=== PATIENT | female | born 1945 | race Caucasian/White ===

== ENCOUNTER 2017-08-07 11:46 | Emergency (ER) | payer MEDICARE ==
[2017-08-07 12:43] LABS: #Eosinphils 0.4 thou/uL (0.0-0.7); #Lymphocytes 1.8 thou/uL (1.20-3.40); #Monocytes 0.5 thou/uL (0.11-0.59); #Neutrophils 4.2 thou/uL (1.40-6.50); %Basophils 0.7 % (0.0-1.0); %Monocytes 7.5 % (0.0-10.0); Hematocrit 43.2 % (36.0-47.0); Mean Platelet Volume 7.8 fL (7.4-10.4); Red Blood Cell (RBC) Count 4.63 mill/uL (4.20-5.40); White Blood Cell (WBC) Count 7.1 thou/uL (4.8-10.8)
[2017-08-07 13:06] LABS: ALT (SGPT) 21 U/L (8-55); AST (SGOT) 27 U/L (5-34); Alkaline Phosphatase 67 U/L (40-150); Anion Gap 13 mmol/L (10-20); BUN (Urea Nitrogen) 14 mg/dL (9.8-20.1); Bilirubin, Total 0.5 mg/dL (0.2-1.2); CK (CPK) 156 U/L (29-168); Calc. Creatinine Clearance 0 mL/min (70-130); Calcium 9.5 mg/dL (7.8-10.44); Carbon Dioxide 28 mmol/L (23-31); Chloride 99 mmol/L (98-107); Estimated GFR-MDRD 66; Globulin 3.7 g/dL (2.4-3.5); Lipase 340 U/L (8-78); Protein, Total 7.6 g/dL (6.0-8.3)
[2017-08-07 13:10] LABS: Troponin I 0.017 ng/mL (< 0.028)
--- NOTE | 2017-08-07 14:19 | RAD ---
CHEST 1 VIEW: Date: 08/07/17 HISTORY: Dyspnea. Chest pain. COMPARISON: None. FINDINGS: Heart size is enlarged. There is a round density of the right paratracheal soft tissues. No pneumothorax. No large effusion. There are some postoperative changes of the mediastinum. IMPRESSION: Round right paratracheal density. This may reflect an ectatic vessel versus a mass. Follow-up CT of chest with contrast may be beneficial in this patient. CODE: T CODE: LUNG NODULE POS: OFF
== END 2017-08-07 15:12 | disposition home or self-care (01) ==
LOC: ERS 11:46
DX: K85.90 Acute pancreatitis without necrosis or infection, unspecified (principal); R05 Cough; E11.9 Type 2 diabetes mellitus without complications; F17.210 Nicotine dependence, cigarettes, uncomplicated; Z79.82 Long term (current) use of aspirin; Z79.84 Long term (current) use of oral hypoglycemic drugs
CPT/HCPCS: 36415; 71010; 80053; 82553; 83690; 83880; 84484; 85025; 93005

== ENCOUNTER 2017-09-28 09:52 | Emergency (ER) | payer MEDICARE ==
[~2017-09-28 09:52] MED LIST: ISOVUE-370 76%-LOCM 1 ML ONE
[2017-09-28 10:46] LABS: #Eosinphils 0.3 thou/uL (0.0-0.7); #Lymphocytes 1.1 thou/uL (1.20-3.40); #Monocytes 0.4 thou/uL (0.11-0.59); #Neutrophils 5.6 thou/uL (1.40-6.50); %Basophils 0.4 % (0.0-1.0); %Eosinophils 3.7 % (0.0-10.0); %Lymphocytes 15.1 % (21.0-51.0); %Monocytes 5.8 % (0.0-10.0); Hematocrit 45.4 % (42.0-52.0); Mean Platelet Volume 7.7 fL (7.4-10.4); Red Blood Cell (RBC) Count 5.04 mill/uL (4.70-6.10); White Blood Cell (WBC) Count 7.4 thou/uL (4.8-10.8)
[2017-09-28] MEDS ORDERED: Lidocaine Viscous Sol 2% 15 ml UD Cup ONE (11:03)
[2017-09-28] MEDS ORDERED: Milk Of Magnesia 30 ML UDCUP ONE (11:03)
[2017-09-28 11:07] LABS: ALT (SGPT) 13 U/L (8-55); AST (SGOT) 21 U/L (5-34); Alkaline Phosphatase 86 U/L (40-150); Anion Gap 13 mmol/L (10-20); BUN (Urea Nitrogen) 13 mg/dL (8.4-25.7); Bilirubin, Total 0.6 mg/dL (0.2-1.2); CK (CPK) 61 U/L (30-200); Calc. Creatinine Clearance 0 mL/min (70-130); Calcium 10.2 mg/dL (7.8-10.44); Carbon Dioxide 29 mmol/L (23-31); Chloride 94 mmol/L (98-107); Estimated GFR-MDRD 73; Globulin 3.8 g/dL (2.4-3.5); Lipase 254 U/L (8-78); Protein, Total 7.8 g/dL (5.8-8.1)
[2017-09-28 11:11] LABS: Troponin I 0.017 ng/mL (< 0.028)
[2017-09-28] MEDS ORDERED: Morphine 4 MG/ML VIAL ONE (12:46)
--- NOTE | 2017-09-28 13:05 | CT ---
CT CERVICAL SPINE: Multiple axial tomograms are obtained through the cervical spine with multiplanar reconstruction. HISTORY: Neck pain. Left arm weakness. FINDINGS: There is a large lytic lesion involving the C2 vertebra. This lesion extends into the base of the od ontoid and involves the C2 body centrally and lateral mass on the right. This measures approximately 2.4 cm in craniocaudal dimension x 2.0 cm width in the coronal plane. There may be an associated so ft tissue component and this could involve the vertebral artery at the C2 level on the right. The so ft tissue component may extend into the epidural space on the right. The other cervical vertebrae maintain height and alignment. There are mottled lucencies seen within the other cervical vertebrae which could represent changes of osteoporosis. However, there is a 5 m m lucency in the inferior aspect of the C3 vertebrae which is suspicious for a metastatic lesion. Th ere are other tiny lucencies in the other vertebrae which could represent osteoporosis or metastatic foci. There is a larger lytic lesion involving the T1 vertebra to the left of midline. This involves the p edicle and lamina of T1 on the left. There is also extension into the left transverse process. A fo ramon lucency in the T2 vertebrae to the left of midline posteriorly is also suspicious for a lytic les ion. Review of soft tissues reveals a large 5.5 cm mass in the anterior right lung apex which may represen t the site of primary neoplasm. IMPRESSION: 1. There are multiple lytic lesions involving the cervical spine which suggests metastatic disease. The large lytic lesion involving the C2 vertebra may represent some epidural extension and could inv olve the right vertebral artery at this level. There are other cervical spine lesions as described a anand with another larger lesion involving the T1 vertebra to the left of midline and a T2 lesion is a lso seen as described above. 2. A large mass in the anterior right lung apex measuring 5.[address] chest with contrast to further evaluate the lung lesion. MRI of the spine with and wi thout contrast would be of benefit to assess the metastatic disease. POS: [facility]
--- NOTE | 2017-09-28 13:40 | CT ---
CT HEAD WITHOUT CONTRAST: Multiple axial tomograms were obtained through the head without IV enhancement. HISTORY: Neck pain. Arm weakness. FINDINGS: Ventricles have normal size and position. There is no evidence of intracranial hemorrhage, mass, or infarct identified. Visualized sinuses and mastoids are well aerated. IMPRESSION: No acute abnormality identified. POS: [facility]
--- NOTE | 2017-09-28 13:58 | CT ---
CT CHEST WITH IV CONTRAST CT ABDOMEN AND PELVIS WITH IV CONTRAST CT THORACIC SPINE NONCONTRAST CT LUMBAR SPINE NONCONTRAST: HISTORY: Chest and abdomen pain. Back pain. FINDINGS: Centered at the medial aspect of the right lung apex is a large lobular heterogeneous low-density mas s measuring up to 5.9 x 5.7 cm greatest diameters. It abuts the right paratracheal mediastinum. A 1 .3 cm pleural-based nodule is present at the medial aspect of the right upper lobe at the level of th e aortic arch. Bulky lobular mass at the subcarinal level of the mediastinum measures up to 7.6 x 5. 8 cm greatest diameters. A 3.1 cm oval mass, likely enlarged lymph node, is present at the right low er paraesophageal level. A 2.2 cm ill-defined low-density mass is present within the tail of the spleen. A 4.1 cm mass is low -density, centered at the uncinate process of the pancreas. A 0.08 cm retroperitoneal lymph node lie s adjacent to the left renal vein. A 0.6 cm nodule is present at the lateral aspect of the right upp er lobe of the lung. An ill-defined destructive lesion involves the lateral aspect of the right 6th rib. There are degenerative changes throughout the thoracolumbar spine. No compression fracture or other acute osseous abnormalities are demonstrated. IMPRESSION: Widespread metastatic disease as detailed above. Primary is favored to be within the pancreas, with metastatic involvement of the right lung, mediastinum, right ribs, and thoracoabdominal adenopathy. POS: [facility]
== END 2017-09-28 14:14 | disposition home or self-care (01) ==
LOC: EDSEX 09:52 → ERS 09:52
DX: C78.01 Secondary malignant neoplasm of right lung (principal); C78.1 Secondary malignant neoplasm of mediastinum; C79.51 Secondary malignant neoplasm of bone; C79.89 Secondary malignant neoplasm of other specified sites; C25.9 Malignant neoplasm of pancreas, unspecified; E11.9 Type 2 diabetes mellitus without complications; F17.210 Nicotine dependence, cigarettes, uncomplicated; Z86.73 Personal history of transient ischemic attack (TIA), and cerebral infarction without residual deficits; Z79.82 Long term (current) use of aspirin; Z79.84 Long term (current) use of oral hypoglycemic drugs
CPT/HCPCS: 70450; 71260; 72125; 74177; 80053; 82550; 82553; 83690; 84484; 85025; 93005; 96361; 96374; J2270

== ENCOUNTER 2017-10-06 08:13 | Day surgery (SDC) | payer MEDICARE ==
[2017-10-05 15:03] VITALS: BMI 25.9
[2017-10-06 08:32] LABS: PTT 29.4 SEC (22.9-36.1); Prothrombin Time 13.5 SEC (12.0-14.7)
[2017-10-06 09:32] VITALS: TEMP 97.8
[2017-10-06] MEDS ORDERED: Sodium Bicarbonate 2.4 MEQ/5 ML ONE (09:53)
[2017-10-06] MEDS ORDERED: Midazolam HCl 2 mg/2 ml Vial ONE (09:54)
[2017-10-06] MEDS ORDERED: Fentanyl 100 MCG/2 ML VIAL ONE (09:54)
--- NOTE | 2017-10-06 13:02 | CT ---
NONCONTRAST ENHANCED CT GUIDED RIGHT SIXTH RIB BIOPSY: 10/06/2017 HISTORY: Extensive mediastinal and retroperitoneal masses with a pathologic right sixth rib fracture. TECHNIQUE: Informed consent was obtained from the patient. The patient was placed in the left dependent positio n. The right sixth rib was localized using CT guidance. The overlying skin was prepped and draped i n the usual sterile manner. A 1% Lidocaine solution was used to anesthetize the overlying soft tissu es. A small dermatotomy was made. An outer 17 gauge needle was placed using CT guidance, adjacent t o the area of pathologic fracture and soft tissue swelling. Three core biopsies were obtained. The specimen was sent for pathology. Initial touch prep suggested the presence of pathologic tissue. Post procedure, no evidence of post biopsy hemothorax or pneumothorax seen. Also noted is some heterogeneity seen in the hepatic parenchyma. Findings suggest extensive liver me tastatic disease as well. IMPRESSION: Successful CT guided right sixth pathologic rib fracture biopsy. POS: [facility]
[2017-10-06] MEDS ORDERED: FLU VACC TS2017-18 (>65YR) 0.5 ML SYRINGE IM ONE (21:00)
== END 2017-10-06 12:00 | disposition home or self-care (01) ==
LOC: CT 08:13
PROVIDERS: ATTEND Internal Medicine Medical Oncology
PROC: 0B9K3ZX Drainage of Right Lung, Percutaneous Approach, Diagnostic (ICD-10-PCS; principal; 2017-10-06)
DX: R19.09 Other intra-abdominal and pelvic swelling, mass and lump (principal); J98.59 Other diseases of mediastinum, not elsewhere classified; M84.48XA Pathological fracture, other site, initial encounter for fracture
CPT/HCPCS: 32405; 36415; 77012; 85610; 85730; 88173; 88305; 88313; 88333; 88334; 88341; 88342; J2250; J3010

== ENCOUNTER 2017-10-16 08:17 | Outpatient (CLI) | payer MEDICARE ==
--- NOTE | 2017-10-16 13:15 | NM ---
WHOLE BODY BONE SCAN: INDICATION: History of lung cancer. RADIOPHARMACEUTICAL: 32 mCi of Technetium 99m MDP IV. COMPARISON: Prior CT of the chest, abdomen, and pelvis dated 09/28/17. FINDINGS: Corresponding to the pathologic fracture involving the right lateral 6th rib is an area of focal radi otracer accumulation. There is a focal region of accumulation seen near the region of the upper thor acic spine suspicious for an additional focus of osseous metastatic disease. This is approximately a t the T1 vertebral level. No corresponding radiotracer accumulation is seen involving the lucency wi thin the L3 vertebral body seen on the comparison examination which may be related to prominent osteo lysis from an osteolytic lesion. There are degenerative changes seen scattered throughout the thorac olumbar spine. There is some activity involving the region of the left glenoid suspicious for an add itional focus of metastatic disease. There is degenerative activity within the feet, knees, wrists, and elbows. IMPRESSION: 1. Findings suspicious for diffuse osseous metastatic disease within the left glenoid, T1 vertebra, and right 6th rib. There is a lucency seen within the central aspect of the L3 vertebra on the robinson rison CT dated 09/28/17 that demonstrates no definite area of radiotracer uptake may reflect a highly aggressive lytic lesion without any bone repair at this current time. 2. Degenerative activity as above. POS: [facility]
== END 2017-10-16 08:18 | disposition home or self-care (01) ==
LOC: NM 08:17
PROVIDERS: ATTEND Internal Medicine Medical Oncology
DX: C34.11 Malignant neoplasm of upper lobe, right bronchus or lung (principal); C79.51 Secondary malignant neoplasm of bone
CPT/HCPCS: 78306; A9503

== ENCOUNTER 2017-10-29 16:03 | Inpatient (IN) | payer MEDICARE ==
[2017-10-29] MEDS ORDERED: Acetaminophen 500 MG TAB ONE (16:44)
[2017-10-29] MEDS ORDERED: Piperacillin/Tazobactam 4.5 GM in Sodium Chloride 0.9% 100 ML IVPB ONE (16:45)
[2017-10-29 17:06] LABS: Hemoglobin 13.1 g/dL (14.0-18.0); Mean Corpuscular HGB CONC 34.2 g/dL (32.0-36.0); Mean Corpuscular Hemoglobin 29.9 pg (27.0-31.0); Mean Corpuscular Volume 87.5 fl (80.0-94.0); Mean Platelet Volume 7.2 fL (7.4-10.4); Platelet Count 108 thou/uL (130-400); RBC Distribution Width 11.8 % (11.5-14.5); Red Blood Cell (RBC) Count 4.37 mill/uL (4.70-6.10); White Blood Cell (WBC) Count 0.5 thou/uL (4.8-10.8)
[2017-10-29 17:16] LABS: ALT (SGPT) 37 U/L (8-55); AST (SGOT) 47 U/L (5-34); Albumin 3.8 g/dL (3.4-4.8); Alkaline Phosphatase 79 U/L (40-150); Anion Gap 14 mmol/L (10-20); BUN (Urea Nitrogen) 18 mg/dL (8.4-25.7); Bilirubin, Total 2.1 mg/dL (0.2-1.2); CK (CPK) 74 U/L (30-200); Calc. Creatinine Clearance 0 mL/min (70-130); Calcium 9.5 mg/dL (7.8-10.44); Carbon Dioxide 27 mmol/L (23-31); Chloride 85 mmol/L (98-107); Estimated GFR-MDRD 76; Globulin 3.5 g/dL (2.4-3.5); Glucose 234 mg/dL (80-115); Lipase Less than 4 U/L (8-78); Magnesium 1.5 mg/dL (1.6-2.6); Potassium 5.5 mmol/L (3.5-5.1); Protein, Total 7.3 g/dL (5.8-8.1); Sodium 120 mmol/L (136-145)
[2017-10-29 17:17] LABS: CKMB 0.4 ng/mL (0-6.6); Troponin I 0.037 ng/mL (< 0.028)
[2017-10-29 17:18] LABS: PLT Morphology Comment Appears Decreased; RBC Morphology Normal
[2017-10-29 17:19] LABS: INR-International Normal Ratio 1.3; Prothrombin Time 16.6 SEC (12.0-14.7)
[2017-10-29 17:20] LABS: PTT 37.5 SEC (22.9-36.1)
--- NOTE | 2017-10-29 17:48 | RAD ---
CHEST TWO VIEWS: 10/29/17 HISTORY: Chest pain. Hypotension. COMPARISON: 09/28/17. FINDINGS: The cardiac silhouette and pulmonary vasculature are unremarkable. Mediastinum is midline with postop erative changes evident. Large right suprahilar mass is again demonstrated, correlating with the lesi on on recent CT. Splaying of the sigifredo is consistent with subcarinal adenopathy. The lungs are hyper inflated. No confluent air space consolidation, pleural fluid, or pneumothorax are apparent. The card iac monitor leads overlie the chest. IMPRESSION: Mediastinal and right suprahilar masses appear stable compared to the recent CT exam. No acute proces s is demonstrated compared to the prior CT. POS: [facility]
[2017-10-29 19:37] LABS: Bilirubin Moderate (Negative); Blood, Urine Negative (Negative); Clarity CLOUDY (Clear); Glucose, Urine (Dipstick) 250 mg/dL (Negative); Leukocyte Trace (Negative); Nitrite Negative (Negative); Protein, Urine (Dipstick) 30 mg/dL (Neg-Trace); Specific Gravity, Urine 1.026 (1.002-1.036)
[2017-10-29 19:39] LABS: Bacteria/HPF None Seen HPF (None Seen); Pathc Cast-AUWi Flag 1.62 (0-2.49); RBC/HPF 0-3 HPF (0-3); Squamous Epithelial 0-3 HPF (0-3); WBC/HPF 0-3 HPF (0-3)
[2017-10-29 19:40] LABS: Yeast-AUWi Flag 25.3 (0-25.0)
[2017-10-29 19:49] LABS: Crystals/HPF None Seen HPF (Negative); Hyaline Casts/LPF 0-3 HYALINE CAST LPF (0-3 Hyaline); Other Casts/LPF None Seen LPF (0-3 Hyaline); Renal Epithelial 0-3 HPF (0-3); Transitional Epithelial 0-3 HPF (0-3); Yeast-All Forms None Seen HPF (None Seen)
[2017-10-29] MEDS ORDERED: Ondansetron HCl/PF 4 MG/2 ML Vial IVP PRN (21:39)
[2017-10-29] MEDS ORDERED: Acetaminophen 325 MG TAB PO PRN (21:39)
[2017-10-29] MEDS ORDERED: Ondansetron ODT 4 MG TAB SL PRN (21:39)
[2017-10-29 23:28] VITALS: BMI 22.5
[2017-10-30] MEDS ORDERED: Dextrose 50% Abboject 50 ML SYRINGE SLOW IVP PRN (01:21)
[2017-10-30] MEDS ORDERED: Ondansetron ODT 4 MG TAB PO PRN (01:21)
[2017-10-30] MEDS ORDERED: HumaLOG 300 UNITS/3 ML VIAL SC PRN (01:21)
[2017-10-30] MEDS ORDERED: Acetaminophen 500 MG TAB PO PRN (01:21)
[2017-10-30] MEDS ORDERED: Ondansetron HCl/PF 4 MG/2 ML Vial IVP PRN (01:21)
[2017-10-30] MEDS ORDERED: Sodium Chloride 0.9% 1,000 ML IV SCH (01:21)
[2017-10-30] MEDS ORDERED: cloNIDine 0.1 MG TAB PO PRN (01:21)
[2017-10-30] MEDS ORDERED: Dextrose 5% in Water 1,000 ML IV PRN (01:21)
[2017-10-30] MEDS ORDERED: hydrALAZINE 20 MG/ML VIAL SLOW IVP PRN (01:21)
[2017-10-30] MEDS: Vancomycin HCl 1 GM in Premix Bag 1 BAG IVPB SCH ×2 (04:23→16:05)
--- NOTE | 2017-10-30 04:48 | HP ---
DATE OF ADMISSION: 10/30/2017 PRIMARY CARE PHYSICIAN: Dr. Kelly at the [facility]. CHIEF COMPLAINT: Fever and malaise. HISTORY OF PRESENT ILLNESS: This is a 72-year-old male from [facility], who resides in [place], [place], acc ompanied by his daughter who translates as the patient does not speak Irish. The patient apparentl y presented for general malaise after a followup visit at the Cancer Clinic noted the patient to be h ypotensive and with fever up to 103 degrees Fahrenheit. The patient's history is significant for sma ll cell lung carcinoma, initiated on chemotherapy within the last week and a half. The patient's las t chemotherapy session was approximately one week prior to this evaluation. The family notes that th e patient has had overall poor oral intake and decreased appetite over the last several weeks. The p atient does drink juices and eats small amounts of vegetables and fruits. No significant history of increased shortness of breath or chest pain; however, the patient does state he feels weakened with a ny light movement or ambulation. The patient denied taking any home remedies for symptom relief. Toby lau reports no other family members with similar symptoms, fever or exposure. In the emergency room , the patient underwent general evaluation including chest imaging showing no acute infiltrate. The patient is with a right suprahilar mass, diagnosis of small cell carcinoma. The patient received int ravenous normal saline x3 L as well as Zosyn 4.5 g x1 dose and vancomycin 1 g. The patient also rece ived 1000 mg of Tylenol and was referred to the Oncology Unit for admission. PAST MEDICAL HISTORY: 1. Coronary artery disease. 2. Tobacco use. 3. Small cell lung carcinoma, status post biopsy with current chemotherapy. 4. Diabetes mellitus type 2. PAST SURGICAL HISTORY: 1. Status post coronary artery bypass grafting. 2. Status post lung biopsy. CURRENT MEDICATIONS: 1. Enteric coated aspirin 81 mg 1 tablet p.o. daily. 2. Glimepiride 1 mg p.o. daily. 3. Rapaflo 8 mg p.o. daily. 4. Tramadol 50 mg 1 tablet p.o. q.6 hours p.r.n. 5. Viscous Lidocaine p.r.n. 6. Zofran 4 mg p.o. q.6 hours p.r.n. nausea and vomiting. ALLERGIES: No known drug allergies. FAMILY HISTORY: Positive for diabetes mellitus. SOCIAL HISTORY: The patient is , accompanied by his and daughter in the hospital. No al cohol or illicit drug use. Occasional tobacco use. REVIEW OF SYSTEMS: The following complete review of systems was negative, unless otherwise mentioned in the HPI or below: Constitutional: Weight loss or gain, ability to conduct usual activities. Skin: Rash, itching. Eyes: Double vision, pain. ENT/Mouth: Nose bleeding, neck stiffness, pain, tenderness. Cardiovascular: Palpitations, dyspnea on exertion, orthopnea. Respiratory: Shortness of breath, wheezing, cough, hemoptysis, fever or night sweats. Gastrointestinal: Poor appetite, abdominal pain, heartburn, nausea, vomiting, constipation, or diarr hea. Genitourinary: Urgency, frequency, dysuria, nocturia. Musculoskeletal: Pain, swelling. Neurologic/Psychiatric: Anxiety, depression. Allergy/Immunologic: Skin rash, bleeding tendency. Otherwise negative except as stated per HPI. PHYSICAL EXAMINATION: VITAL SIGNS: Currently, blood pressure 108/53, pulse 103, respiratory rate 16, temperature 97.8 degr ees Fahrenheit, T-max of 103 degrees Fahrenheit. O2 saturation 97% on room air. GENERAL APPEARANCE: This is a 72-year-old male, alert and responsive, in no acute distress. HEENT: Pupils are equal, round, and reactive to light and accommodation. Extraocular muscles are in tact. No scleral icterus, no conjunctival injection. Nares patent. OP is clear. NECK: Supple, no cervical adenopathy, no thyromegaly, no carotid bruits, no JVD appreciated. Cervic al spine is with full active and passive range of motion. No meningeal signs appreciated. CHEST: Diminished in the lung bases. CARDIOVASCULAR: S1, S2, without noted murmur. ABDOMEN: Rounded, soft, nontender, and nondistended. Bowel sounds are positive in all 4 quadrants. There is no hepatosplenomegaly, no abdominal bruits, no rebound or guarding noted. EXTREMITIES: Warm and dry with fair turgor. No clubbing, cyanosis or asymmetric edema appreciated. Pulses palpable distally at the dorsalis pedis, posterior tibial, and popliteal arteries bilaterally . Capillary refill is less than 2 seconds. NEUROLOGIC: Cranial nerves II-XII are grossly intact. No focal or lateralizing signs appreciated. PERTINENT LABORATORY AND X-RAY FINDINGS: Sodium 120, potassium 5.5, chloride 85, CO2 of 27, BUN 18, creatinine 0.98, glucose 234. Lactic acid level ranged between 2.0 to 2.3, calcium 9.5, magnesium 1. 5, total bilirubin 2.1, AST 47, ALT 37, alkaline phosphatase 79. BNP 395, albumin 3.8. Lipase is le ss than 4. CBC showed a white blood cell count 0.5, hemoglobin 13, hematocrit 38, and platelet count 108. PT 16.6, INR 1.3, PTT 37.5. Urinalysis dated 10/29/2017 showed positive for protein, glucose and trace ketones. Moderate bilirubin noted. Urine microscopy is negative. Influenza A and B antig en dated 10/29/2017 is negative. Group A streptococcal throat screen on 10/29/2017 is negative. Por table chest x-ray dated 10/29/2017 showed no acute cardiopulmonary process. Mediastinal and right cyr prahilar masses noted consistent with prior study. EKG dated 10/29/2017 by my interpretation shows s inus tachycardia with heart rate in the 120s. Attenuated R waves noted in the precordial leads. Nor mal axis. T-wave inversion in leads V5 and V6. T-wave inversion in leads II, III, and F. ASSESSMENT AND PLAN: 1. Neutropenic fever. The patient will be admitted to the medical oncology unit. We will continue vancomycin 1 g IV q.12 hours with additional cefepime 2 g IV q.12 hours. Blood and urine cultures ar e pending. Continue intravenous fluids with normal saline at 100 mL per hour. Await final blood and urine culture results. 2. Sepsis of unclear source. Continue sepsis protocol. See #1 above. 3. Hyponatremia. Suspect multifactorial given the patient's poor p.o. intake and recent chemotherap y. Continue intravenous normal saline and monitor serial sodium values. 4. Hyperkalemia. Continue intravenous fluids as stated previously. Repeat potassium level in the a .m. 5. Small cell lung carcinoma with current chemotherapy. We will continue symptomatic and supportive management. The patient is to resume outpatient chemotherapy when clinically stabilizing. 6. Neutropenia with thrombocytopenia. We will continue to monitor CBC trend. We will hold further chemotherapy until recovery of platelets and white blood cell counts. 7. Diabetes mellitus type 2. Insulin sliding scale for reflexive coverage. Accu-Cheks before meals and at bedtime. ADA diet. 8. Prophylaxis. Sequential compression devices while in bed. Pepcid 20 mg p.o. b.i.d. 9. Code status is FULL. Surrogate medical decision maker is the patient's daughter.
[2017-10-30 05:55] LABS: Hemoglobin 10.3 g/dL (14.0-18.0); Mean Corpuscular HGB CONC 33.7 g/dL (32.0-36.0); Mean Corpuscular Hemoglobin 29.8 pg (27.0-31.0); Mean Corpuscular Volume 88.4 fl (80.0-94.0); Mean Platelet Volume 6.7 fL (7.4-10.4); Platelet Count 64 thou/uL (130-400); RBC Distribution Width 11.8 % (11.5-14.5); Red Blood Cell (RBC) Count 3.45 mill/uL (4.70-6.10); White Blood Cell (WBC) Count 0.4 thou/uL (4.8-10.8)
[2017-10-30] MEDS ORDERED: Cefepime 2 GM in Sodium Chloride 0.9% 100 ML IVPB SCH (06:00)
[2017-10-30 06:10] LABS: ALT (SGPT) 24 U/L (8-55); AST (SGOT) 23 U/L (5-34); Albumin 3.1 g/dL (3.4-4.8); Alkaline Phosphatase 58 U/L (40-150); Anion Gap 10 mmol/L (10-20); BUN (Urea Nitrogen) 15 mg/dL (8.4-25.7); Bilirubin, Total 1.5 mg/dL (0.2-1.2); Calc. Creatinine Clearance 85 mL/min (70-130); Calcium 8.6 mg/dL (7.8-10.44); Carbon Dioxide 24 mmol/L (23-31); Chloride 92 mmol/L (98-107); Estimated GFR-MDRD Greater than 90; Globulin 2.8 g/dL (2.4-3.5); Glucose 180 mg/dL (80-115); Potassium 4.4 mmol/L (3.5-5.1); Protein, Total 5.9 g/dL (5.8-8.1); Sodium 122 mmol/L (136-145)
[2017-10-30] MEDS: Cefepime 2 GM, Syringe 2.5 ML in Sterile Water 10 ML SLOW IVP SCH ×3 (06:25→21:31)
[2017-10-30] MEDS: Cepastat Lozenges 1 LOZ PO PRN ×4 (06:25→21:31)
[2017-10-30] MEDS: Famotidine 20 MG TAB PO SCH ×2 (08:37→21:53)
[2017-10-30] MEDS ORDERED: Polyethylene Glycol 3350 17 GM Packet PO PRN (09:07)
[2017-10-30] MEDS ORDERED: Aluminum & Magnesium Hydroxide 60 ML, Lidocaine 2% Viscous Solution 30 ML, diphenhydrAM... SSW PRN ×3 (09:07)
[2017-10-30] MEDS ORDERED: traMADol HCl 50 MG TAB PO PRN (09:07)
[2017-10-30] MEDS: traMADol HCl 50 MG TAB PO PRN ×3 (11:11→21:28)
--- NOTE | 2017-10-30 13:33 | CON ---
DATE OF CONSULTATION: 10/30/2017 REASON FOR CONSULTATION: Neutropenic fever. HISTORY OF PRESENT ILLNESS: Mr. Velazquez is a 72-year-old [place] male who was diagnosed with small cell lung cancer with multiple metastases in 09/2017. He presented at diagnosis with a 5.9 x 5.7 cm mass in his right lung apex. There was also a 7.6 x 5.8 cm mass in the subcarinal mediastinum. He had l esions in his pancreas, spleen, bone, and pleural space. He underwent radiation which was completed last week. He then received cycle 1 of chemotherapy consisting of carboplatin and [employer] REIMBURSEMENT SPECIALIST-16. Yesterday, he presented to the clinic with general malaise and fever of 100.2. CBC revealed a white count of 6 00. He was thus admitted for neutropenic fever. He had influenza screen, which was negative. Blood cultures of all preliminary have been negative. He was started on empiric antibiotics and IV fluids . PAST MEDICAL HISTORY: 1. Newly diagnosed small cell lung cancer. 2. Type 2 diabetes mellitus. 3. Myocardial infarction. PAST SURGICAL HISTORY: Coronary artery bypass grafting. ALLERGIES: No known drug allergies. HOME MEDICATIONS: 1. Aspirin 81 mg daily. 2. Glimepiride 1 mg daily. 3. Magic mouthwash p.r.n. 4. Tramadol p.r.n. FAMILY HISTORY: Noncontributory. SOCIAL HISTORY: , lives with his spouse, 3-pack a day smoker for over 50 years. No alcohol o r illicit drug use. REVIEW OF SYSTEMS: Positive for fever, chills, weight loss, cough, chest pain, back pain, and weakne ss. PHYSICAL EXAMINATION: VITAL SIGNS: Temperature is 98.6, pulse is 125, respiratory rate is 18, BP is 142/69, 98% on room ai r. GENERAL: This is a thin male, in no acute distress. HEENT: Normocephalic, atraumatic. Pupils equal, round, and reactive to light. NECK: Supple. HEART: Regular rate and rhythm. He is tachycardic. LUNGS: Clear. ABDOMEN: Soft, nontender. There is no hepatosplenomegaly. EXTREMITIES: No clubbing, cyanosis or edema. SKIN: No rash. HEMATOLOGIC: No petechia or purpura. NEUROLOGIC: Nonfocal. PSYCHIATRIC: The patient is alert and appropriate. PERTINENT LABORATORY AND X-RAYS: Current WBC is 400, hemoglobin 10.3, hematocrit 30.5, platelet coun t 64,000. PT is 16.6, INR is 1.3, PTT is 37.5. Sodium is 122, potassium 4.4, chloride 92, CO2 is 24 , BUN is 15, creatinine 0.75. Lactic acid is 2, calcium 8.6, bilirubin is 1.5, AST is 23, ALT is 24, alkaline phosphatase is 58, troponin 0.037, BNP is 395, serum total protein 5.9, albumin 3.1, globul in 2.8. Urine was negative for bacteria. Chest x-ray showed no acute process. ASSESSMENT AND PLAN: 1. Extensive small cell lung cancer, status post cycle 1 of chemotherapy. 2. Neutropenic fever. 3. Dehydration. 4. Hyponatremia secondary to #1. DISCUSSION: The patient has been started on empiric antibiotics and IV fluids. He feels much better today. He remains severely neutropenic. No Neupogen will be given at this time as he had just comp leted radiation. We will provide supportive care with fluids and antibiotics. I will add his home m edications including Magic mouthwash and tramadol, provide supportive care.
--- NOTE | 2017-10-30 15:01 | PDOC.PN ---
- Subjective Encounter Start Date: 10/30/17 Encounter Start Time: 14:59 Mr. Velazquez was seen today in follow-up of Neutropenic fever. He admits to some sore throat and cough, otherwise ok. - Objective Resuscitation Status: Resuscitation Status FULL:Full Resuscitation MAR Reviewed: Yes Vital Signs & Weight: Vital Signs (12 hours) Temp Pulse Resp BP Pulse Ox 10/30/17 08:00 98.6 F 125 H 18 98 10/30/17 07:14 98.6 F 125 H 18 142/69 H 98 10/30/17 03:44 98.5 F 114 H 16 131/71 99 Weight Admit Weight 143 lb 15.36 oz Weight 143 lb 15.36 oz Result Diagrams: 10/30/17 05:23 10/30/17 05:23 Additional Labs: Accuchecks 10/30/17 10/30/17 11:17 05:27 POC Glucose 158 H 173 H Phys Exam - Physical Examination HEENT: PERRLA Respiratory: no wheezing + mild rhonchi bilaterally Cardiovascular: RRR, no significant murmur Gastrointestinal: soft, non-tender, positive bowel sounds Musculoskeletal: no edema Dx/Plan (1) Neutropenic fever Code(s): D70.9 - NEUTROPENIA, UNSPECIFIED; R50.81 - FEVER PRESENTING WITH CONDITIONS CLASSIFIED ELSEWHERE Status: Acute (2) Small cell lung cancer Code(s): C34.90 - MALIGNANT NEOPLASM OF UNSP PART OF UNSP BRONCHUS OR LUNG Status: Acute (3) Hyponatremia Code(s): E87.1 - HYPO-OSMOLALITY AND HYPONATREMIA Status: Acute - Plan * Neutropenic fever unknown source-- continue Cefepime and Vancomycin, cultures are negative to date. * Hyponatremia- I suspect due to volume depletion as well as SIADH ( given history of lung cancer) will check urine/serum osmols, and urine sodium- continue IV fluids, but may need to restrict free water * DM- blood glucose is stable * CAD- stable
[2017-10-30] MEDS: GRANIX 300 MCG/0.5 ML VIAL SC SCH (16:05)
[2017-10-30 16:33] LABS: Osmolality, Urine 672 mOsm/kg (300-900)
[2017-10-30 17:02] LABS: Sodium, Urine 50 mmol/L (Not Available)
[2017-10-30] MEDS: Sodium Chloride 0.9% 1,000 ML IV SCH (18:18)
[2017-10-30] MEDS: Docusate 100 MG CAP PO SCH (21:28)
[2017-10-30] MEDS: HumaLOG 300 UNITS/3 ML VIAL SC PRN (21:30)
[2017-10-31 04:56] LABS: Hemoglobin 9.2 g/dL (14.0-18.0); Mean Corpuscular HGB CONC 33.5 g/dL (32.0-36.0); Mean Corpuscular Volume 89.5 fl (80.0-94.0); Mean Platelet Volume 7.1 fL (7.4-10.4); Platelet Count 64 thou/uL (130-400); RBC Distribution Width 11.8 % (11.5-14.5); Red Blood Cell (RBC) Count 3.06 mill/uL (4.70-6.10); White Blood Cell (WBC) Count 0.4 thou/uL (4.8-10.8)
[2017-10-31 05:02] LABS: Vancomycin, Trough 10.4 ug/mL
[2017-10-31 05:04] LABS: Anion Gap 11 mmol/L (10-20); BUN (Urea Nitrogen) 18 mg/dL (8.4-25.7); Calc. Creatinine Clearance 96 mL/min (70-130); Calcium 8.4 mg/dL (7.8-10.44); Carbon Dioxide 24 mmol/L (23-31); Chloride 95 mmol/L (98-107); Estimated GFR-MDRD Greater than 90; Glucose 120 mg/dL (80-115); Potassium 3.8 mmol/L (3.5-5.1); Sodium 126 mmol/L (136-145)
[2017-10-31] MEDS ORDERED: Vancomycin HCl 1.5 GM in Sodium Chloride 0.9% 250 ML 300 ML IVPB SCH (05:30)
[2017-10-31] MEDS: Cefepime 2 GM, Syringe 2.5 ML in Sterile Water 10 ML SLOW IVP SCH ×3 (05:44→21:45)
[2017-10-31] MEDS: traMADol HCl 50 MG TAB PO PRN ×3 (05:44→21:15)
[2017-10-31] MEDS: Cepastat Lozenges 1 LOZ PO PRN ×2 (05:45→13:07)
[2017-10-31] MEDS: Vancomycin HCl 1 GM in Premix Bag 1 BAG IVPB SCH (06:06)
--- NOTE | 2017-10-31 07:31 | PDOC.PN ---
- Subjective Encounter Start Date: 10/31/17 Encounter Start Time: 07:28 Mr. Velazquez was seen today in follow-up of neutropenic fever. He does not have any complaints this morning. - Objective Resuscitation Status: Resuscitation Status FULL:Full Resuscitation MAR Reviewed: Yes Vital Signs & Weight: Vital Signs (12 hours) Temp Pulse Resp Pulse Ox 10/30/17 20:00 99.0 F 104 H 14 96 Weight Admit Weight 143 lb 15.36 oz Weight 143 lb 15.36 oz I&O: 10/30/17 10/31/17 11/01/17 06:59 06:59 06:59 Intake Total 2019 Balance 2019 Result Diagrams: 10/31/17 04:22 10/31/17 04:22 Additional Labs: Accuchecks 10/30/17 10/30/17 10/30/17 20:12 16:36 11:17 POC Glucose 237 H 213 H 158 H Phys Exam - Physical Examination HEENT: PERRLA + rhonchi scattered Cardiovascular: RRR, no significant murmur Gastrointestinal: soft, non-tender, positive bowel sounds Musculoskeletal: no edema Dx/Plan (1) Neutropenic fever Code(s): D70.9 - NEUTROPENIA, UNSPECIFIED; R50.81 - FEVER PRESENTING WITH CONDITIONS CLASSIFIED ELSEWHERE Status: Acute (2) Small cell lung cancer Code(s): C34.90 - MALIGNANT NEOPLASM OF UNSP PART OF UNSP BRONCHUS OR LUNG Status: Acute (3) Hyponatremia Code(s): E87.1 - HYPO-OSMOLALITY AND HYPONATREMIA Status: Acute - Plan * Neutropenic fever- all cultures are negative so far- will continue the current antibiotics. awaiting recovery of his WBC count * Hyponatremia- lab work is consistent with SIADH- however he is likely volume depleted as well, Will continue IV fluids until his sodium stalls, then will change to fluid restriction * Small cell Lung cancer- as per Oncology.
[2017-10-31] MEDS: Docusate 100 MG CAP PO SCH ×2 (09:57→20:45)
[2017-10-31] MEDS: Famotidine 20 MG TAB PO SCH ×2 (09:57→20:45)
[2017-10-31] MEDS: Sodium Chloride 0.9% 1,000 ML IV SCH (11:07)
--- NOTE | 2017-10-31 13:28 | EKG ---
Test Reason : Blood Pressure : / mmHG Vent. Rate : 129 BPM Atrial Rate : 129 BPM P-R Int : 172 ms QRS Dur : 100 ms QT Int : 274 ms P-R-T Axes : 000 048 -70 degrees QTc Int : 401 ms Sinus tachycardia Abnormal ECG Confirmed by SANDRA MAHARAJ ([id number]), associate entertainment editor VERNON RUSSO ([id number]) on 10/31/2017 1:27:32 PM Referred By: Confirmed By:SANDRA MAHARAJ
[2017-10-31] MEDS: GRANIX 300 MCG/0.5 ML VIAL SC SCH (16:45)
[2017-10-31] MEDS: Vancomycin HCl 1.5 GM in Sodium Chloride 0.9% 250 ML 300 ML IVPB SCH (17:01)
[2017-11-01] MEDS: Sodium Chloride 0.9% 1,000 ML IV SCH ×3 (03:00→22:21)
[2017-11-01] MEDS: Cefepime 2 GM, Syringe 2.5 ML in Sterile Water 10 ML SLOW IVP SCH ×3 (05:22→22:13)
[2017-11-01] MEDS: Vancomycin HCl 1.5 GM in Sodium Chloride 0.9% 250 ML 300 ML IVPB SCH ×2 (05:23→16:27)
[2017-11-01 06:49] LABS: White Blood Cell (WBC) Count 0.8 thou/uL (4.8-10.8)
[2017-11-01 07:03] LABS: Anion Gap 11 mmol/L (10-20); BUN (Urea Nitrogen) 19 mg/dL (8.4-25.7); Calc. Creatinine Clearance 96 mL/min (70-130); Calcium 8.6 mg/dL (7.8-10.44); Carbon Dioxide 27 mmol/L (23-31); Chloride 96 mmol/L (98-107); Estimated GFR-MDRD Greater than 90; Glucose 154 mg/dL (80-115); Potassium 3.7 mmol/L (3.5-5.1); Sodium 130 mmol/L (136-145)
--- NOTE | 2017-11-01 07:17 | PDOC.PN ---
- Subjective Encounter Start Date: 11/01/17 Encounter Start Time: 07:15 Mr. Velazquez was seen today in follow-up of Neutropenic fever. He still has very poor oral intake due to throat pain. No other complaints. - Objective Resuscitation Status: Resuscitation Status FULL:Full Resuscitation MAR Reviewed: Yes Vital Signs & Weight: Vital Signs (12 hours) Temp Pulse Resp BP Pulse Ox 10/31/17 20:02 99.2 F 93 18 130/58 L 96 10/31/17 20:00 99.2 F 93 18 96 Weight Admit Weight 143 lb 15.36 oz Weight 143 lb 15.36 oz I&O: 10/31/17 11/01/17 11/02/17 06:59 06:59 06:59 Intake Total 2019 1050 Balance 2019 1050 Result Diagrams: 11/01/17 06:34 11/01/17 06:34 Additional Labs: Accuchecks 10/31/17 10/31/17 10/31/17 20:47 15:35 11:03 POC Glucose 224 H 169 H 229 H Phys Exam - Physical Examination HEENT: PERRLA + rhonchi bilaterall, rales at the bases Cardiovascular: RRR, no significant murmur Gastrointestinal: soft, non-tender, positive bowel sounds Musculoskeletal: no edema Dx/Plan (1) Neutropenic fever Code(s): D70.9 - NEUTROPENIA, UNSPECIFIED; R50.81 - FEVER PRESENTING WITH CONDITIONS CLASSIFIED ELSEWHERE Status: Acute (2) Small cell lung cancer Code(s): C34.90 - MALIGNANT NEOPLASM OF UNSP PART OF UNSP BRONCHUS OR LUNG Status: Acute (3) Hyponatremia Code(s): E87.1 - HYPO-OSMOLALITY AND HYPONATREMIA Status: Acute - Plan * Neutropenic Fever- His WBC count has improved, still await the differential * Continue IV antibiotics * Hyponatremia- serum sodium has also improved * Continue to encourage oral intake, and magic mouthwash for throat pain.
[2017-11-01 07:26] LABS: Hemoglobin 8.8 g/dL (14.0-18.0); Mean Corpuscular HGB CONC 33.3 g/dL (32.0-36.0); Mean Corpuscular Hemoglobin 30.1 pg (27.0-31.0); Mean Corpuscular Volume 90.2 fl (80.0-94.0); Mean Platelet Volume 6.6 fL (7.4-10.4); Platelet Count 63 thou/uL (130-400); RBC Distribution Width 11.9 % (11.5-14.5); Red Blood Cell (RBC) Count 2.93 mill/uL (4.70-6.10)
[2017-11-01] MEDS ORDERED: Silodosin 8 MG CAP PO SCH (08:00)
[2017-11-01 08:50] LABS: Anisocytosis SLIGHT = 6-15 cells (100X) (0-5/hpf); Band 20 % (5-11); Eosinophils 6 % (0-10); Lymphocytes 20 % (21-51); MDiff Complete? YES; Metamyelocyte 2 % (0-0); Monocytes 28 % (0-10); Neutrophil 24 % (42-75); PLT Morphology Comment Appears Decreased; Polychromasia SLIGHT = 2-3 cells (100X) (0-2/hpf); Reflex for Review?? NO
[2017-11-01] MEDS: Famotidine 20 MG TAB PO SCH ×2 (09:26→22:14)
[2017-11-01] MEDS: Docusate 100 MG CAP PO SCH ×2 (09:26→22:18)
[2017-11-01] MEDS: Cepastat Lozenges 1 LOZ PO PRN ×2 (12:00→22:14)
[2017-11-01] MEDS ORDERED: Morphine 4 MG/ML VIAL SLOW IVP PRN (14:18)
[2017-11-01] MEDS: traMADol HCl 50 MG TAB PO PRN ×2 (14:18→22:15)
[2017-11-01] MEDS: GRANIX 300 MCG/0.5 ML VIAL SC SCH (16:49)
[2017-11-01] MEDS: HumaLOG 300 UNITS/3 ML VIAL SC PRN (22:16)
[2017-11-02 04:31] LABS: Vancomycin, Trough 19.3 ug/mL
[2017-11-02 04:33] LABS: Anion Gap 10 mmol/L (10-20); BUN (Urea Nitrogen) 17 mg/dL (8.4-25.7); Calc. Creatinine Clearance 109 mL/min (70-130); Calcium 8.6 mg/dL (7.8-10.44); Carbon Dioxide 28 mmol/L (23-31); Chloride 96 mmol/L (98-107); Estimated GFR-MDRD Greater than 90; Glucose 117 mg/dL (80-115); Potassium 3.6 mmol/L (3.5-5.1); Sodium 130 mmol/L (136-145)
[2017-11-02 04:47] LABS: Band 17 % (5-11); Eosinophils 1 % (0-10); Hemoglobin 9.5 g/dL (14.0-18.0); Lymphocytes 24 % (21-51); MDiff Complete? YES; Mean Corpuscular HGB CONC 32.8 g/dL (32.0-36.0); Mean Corpuscular Hemoglobin 29.8 pg (27.0-31.0); Mean Corpuscular Volume 90.8 fl (80.0-94.0); Mean Platelet Volume 7.5 fL (7.4-10.4); Monocytes 14 % (0-10); Neutrophil 44 % (42-75); PLT Morphology Comment Appears Decreased; Platelet Count 94 thou/uL (130-400); RBC Distribution Width 12.1 % (11.5-14.5); Red Blood Cell (RBC) Count 3.18 mill/uL (4.70-6.10); White Blood Cell (WBC) Count 2.3 thou/uL (4.8-10.8)
[2017-11-02] MEDS: Cefepime 2 GM, Syringe 2.5 ML in Sterile Water 10 ML SLOW IVP SCH ×3 (06:04→21:41)
[2017-11-02] MEDS: Cepastat Lozenges 1 LOZ PO PRN ×3 (06:05→21:42)
[2017-11-02] MEDS: Vancomycin HCl 1.5 GM in Sodium Chloride 0.9% 250 ML 300 ML IVPB SCH ×2 (06:05→17:03)
--- NOTE | 2017-11-02 07:28 | PDOC.PN ---
- Subjective Encounter Start Date: 11/02/17 Encounter Start Time: 07:26 Mr. Velazquez was seen in follow-up of Neutropenic fever. He was able to rest last night. He still has trouble with solid foods, but was able to take in 5 cans of ensure yesterday. - Objective Resuscitation Status: Resuscitation Status FULL:Full Resuscitation MAR Reviewed: Yes Vital Signs & Weight: Vital Signs (12 hours) Temp Pulse Resp BP BP Pulse Ox 11/02/17 07:14 97.7 F 91 19 132/67 100 11/01/17 20:00 98.6 F 77 12 98 11/01/17 19:33 98.6 F 77 12 136/74 98 Weight Admit Weight 143 lb 15.36 oz Weight 143 lb 15.36 oz I&O: 11/01/17 11/02/17 11/03/17 06:59 06:59 06:59 Intake Total 1050 1735 Balance 1050 1735 Result Diagrams: 11/02/17 03:55 11/02/17 03:55 Additional Labs: Accuchecks 11/02/17 11/01/17 11/01/17 05:29 20:41 16:04 POC Glucose 127 H 270 H 201 H 11/01/17 11:11 POC Glucose 186 H Phys Exam - Physical Examination HEENT: PERRLA Respiratory: no wheezing, no rales, no rhonchi, clear to auscultation bilateral Cardiovascular: RRR, no significant murmur Gastrointestinal: soft, non-tender, positive bowel sounds Musculoskeletal: no edema Dx/Plan (1) Neutropenic fever Code(s): D70.9 - NEUTROPENIA, UNSPECIFIED; R50.81 - FEVER PRESENTING WITH CONDITIONS CLASSIFIED ELSEWHERE Status: Acute (2) Small cell lung cancer Code(s): C34.90 - MALIGNANT NEOPLASM OF UNSP PART OF UNSP BRONCHUS OR LUNG Status: Acute (3) Hyponatremia Code(s): E87.1 - HYPO-OSMOLALITY AND HYPONATREMIA Status: Acute - Plan * Neutropenic fever- he has improved, and his WBC count is now 2.3K and ANC is about 943, close to 1K * He is afebrile * Hyponatremia- improved * Can consider discharge home on an oral antibiotic, if OK with Oncology.
[2017-11-02] MEDS: Docusate 100 MG CAP PO SCH ×2 (10:23→21:43)
[2017-11-02] MEDS: Famotidine 20 MG TAB PO SCH ×2 (10:23→21:42)
[2017-11-02] MEDS: Sodium Chloride 0.9% 1,000 ML IV SCH (14:30)
[2017-11-02] MEDS ORDERED: Silodosin 8 MG CAP PO SCH (17:00)
[2017-11-02] MEDS: GRANIX 300 MCG/0.5 ML VIAL SC SCH (17:04)
[2017-11-02] MEDS: traMADol HCl 50 MG TAB PO PRN ×2 (17:05→21:55)
[2017-11-03 04:56] LABS: Vancomycin, Trough 20.7 ug/mL
[2017-11-03 04:59] LABS: Anion Gap 10 mmol/L (10-20); BUN (Urea Nitrogen) 13 mg/dL (8.4-25.7); Calc. Creatinine Clearance 111 mL/min (70-130); Calcium 8.7 mg/dL (7.8-10.44); Carbon Dioxide 29 mmol/L (23-31); Chloride 93 mmol/L (98-107); Estimated GFR-MDRD Greater than 90; Glucose 137 mg/dL (80-115); Potassium 3.4 mmol/L (3.5-5.1); Sodium 129 mmol/L (136-145)
[2017-11-03 05:27] LABS: Band 42 % (5-11); Hemoglobin 10.2 g/dL (14.0-18.0); Lymphocytes 17 % (21-51); MDiff Complete? YES; Mean Corpuscular HGB CONC 32.7 g/dL (32.0-36.0); Mean Corpuscular Hemoglobin 29.8 pg (27.0-31.0); Mean Corpuscular Volume 91.1 fl (80.0-94.0); Mean Platelet Volume 7.7 fL (7.4-10.4); Metamyelocyte 1 % (0-0); Monocytes 11 % (0-10); Myelocyte 1 % (0-0); Neutrophil 28 % (42-75); Nucleated RBC 1 % (0); PLT Morphology Comment Appears Adequate; Platelet Count 141 thou/uL (130-400); RBC Distribution Width 12.3 % (11.5-14.5); Red Blood Cell (RBC) Count 3.43 mill/uL (4.70-6.10); White Blood Cell (WBC) Count 8.4 thou/uL (4.8-10.8)
[2017-11-03] MEDS: Cefepime 2 GM, Syringe 2.5 ML in Sterile Water 10 ML SLOW IVP SCH (05:28)
[2017-11-03] MEDS: Sodium Chloride 0.9% 1,000 ML IV SCH (05:29)
[2017-11-03] MEDS: Vancomycin HCl 1.5 GM in Sodium Chloride 0.9% 250 ML 300 ML IVPB SCH (05:54)
[2017-11-03 07:36] VITALS: BP 142/67; TEMP 97.8
[2017-11-03] MEDS: Docusate 100 MG CAP PO SCH (08:20)
[2017-11-03] MEDS: Famotidine 20 MG TAB PO SCH (08:20)
[2017-11-03] MEDS: Cepastat Lozenges 1 LOZ PO PRN (08:26)
[2017-11-03] MEDS ORDERED: Vancomycin HCl 1.25 GM in Sodium Chloride 0.9% 250 ML 250 ML IVPB SCH (09:00)
--- NOTE | 2017-11-03 09:03 | PDOC.PN ---
- Subjective Encounter Start Date: 11/03/17 Encounter Start Time: 09:02 Patient seen and examined. No new complaints. No overnight events - Objective Resuscitation Status: Resuscitation Status FULL:Full Resuscitation MAR Reviewed: Yes Vital Signs & Weight: Vital Signs (12 hours) Temp Pulse Resp BP BP Pulse Ox 11/03/17 07:35 97.8 F 89 20 142/67 H 99 11/02/17 21:58 98.0 F 76 18 161/80 H 100 Weight Admit Weight 143 lb 15.36 oz Weight 143 lb 15.36 oz I&O: 11/02/17 11/03/17 11/04/17 06:59 06:59 06:59 Intake Total 1735 900 Balance 1735 900 Result Diagrams: 11/03/17 04:09 11/03/17 04:09 Additional Labs: Accuchecks 11/03/17 11/02/17 11/02/17 05:35 21:40 16:30 POC Glucose 130 H 158 H 324 H 11/02/17 11:35 POC Glucose 192 H Phys Exam - Physical Examination Constitutional: NAD HEENT: PERRLA Neck: no JVD Respiratory: no wheezing Cardiovascular: no significant murmur Gastrointestinal: non-tender Musculoskeletal: pulses present Neurological: normal sensation Dx/Plan (1) Diabetes mellitus Code(s): E11.9 - TYPE 2 DIABETES MELLITUS WITHOUT COMPLICATIONS Status: Acute (2) Hyponatremia Code(s): E87.1 - HYPO-OSMOLALITY AND HYPONATREMIA Status: Acute (3) Neutropenic fever Code(s): D70.9 - NEUTROPENIA, UNSPECIFIED; R50.81 - FEVER PRESENTING WITH CONDITIONS CLASSIFIED ELSEWHERE Status: Acute (4) Small cell lung cancer Code(s): C34.90 - MALIGNANT NEOPLASM OF UNSP PART OF UNSP BRONCHUS OR LUNG Status: Acute - Plan * doing well * d/c home * f/u with dr mims
[2017-11-03] MEDS ORDERED: Potassium Chloride 20 MEQ TAB PO SCH (09:15)
--- NOTE | 2017-11-03 09:44 | DIS ---
DATE OF ADMISSION: 10/29/2017 DATE OF DISCHARGE: 11/03/2017 DISCHARGE DIAGNOSES: 1. Neutropenic fever, resolved. 2. Coronary artery disease, stable. 3. Tobacco use, stable. 4. Small cell carcinoma, status post round one of chemotherapy, stable. 5. Diabetes mellitus type 2, stable. CONSULTANTS: The patient's consultants on the case were Oncology. DISCHARGE MEDICATIONS: The same as admit medications. BRIEF HOSPITAL COURSE: A 72-year-old pleasant gentleman came into the hospital with fever and malais e. Please refer to the admitting physician's H&P for further details. The patient was admitted for evaluation of neutropenic fever. The patient had multiple cultures done. Blood cultures and urine c ultures were negative and the patient was negative for the flu test, A and B. Urine cultures are neg ative. C. diff was negative. The patient improved this hospital stay. At the time of discharge, hi s white count is 8.4 with 28% neutrophils and 42% bands. The patient is right now medically stable to be discharged with outpatient follow up with Dr. Enio roca. He is feeling much better. His appetite has improved. He is keeping five cans. He is taking in 5 cans of Ensure a day. He is asked to come back to the emergency room in case symptoms recur. Total time for this discharge took 35 minutes.
== END 2017-11-03 10:41 | disposition home or self-care (01) | DRG 809 ==
LOC: ERS 16:03 → ONC 20:10
PROVIDERS: ADMIT Family Medicine; ATTEND Family Medicine
DX: D70.9 Neutropenia, unspecified (principal); E87.1 Hypo-osmolality and hyponatremia; I95.9 Hypotension, unspecified; E87.5 Hyperkalemia; D69.6 Thrombocytopenia, unspecified; E11.9 Type 2 diabetes mellitus without complications; C34.91 Malignant neoplasm of unspecified part of right bronchus or lung; R50.81 Fever presenting with conditions classified elsewhere; Z92.21 Personal history of antineoplastic chemotherapy; I25.10 Atherosclerotic heart disease of native coronary artery without angina pectoris; F17.210 Nicotine dependence, cigarettes, uncomplicated; Z79.84 Long term (current) use of oral hypoglycemic drugs; Z79.82 Long term (current) use of aspirin; I25.2 Old myocardial infarction; Z95.1 Presence of aortocoronary bypass graft; E86.0 Dehydration
CPT/HCPCS: 36415; 36416; 71020; 80048; 80053; 80202; 81003; 81015; 82550; 82553; 83605; 83690; 83735; 83880; 83930; 83935; 84300; 84484; 85007; 85025; 85027; 85610; 85730; 87040; 87081; 87086; 87324; 87430; 87449; 93005; 96361; 96365; 96367; A4216; J0692; J1442; J2270; J2543; J3370; J7050

== ENCOUNTER 2017-11-27 07:37 | Outpatient (CLI) | payer MEDICARE ==
[2017-11-27 08:35] LABS: Estimated GFR-MDRD - POC Greater than 90
--- NOTE | 2017-11-27 09:50 | CT ---
CHEST AND ABDOMEN CT SCAN WITH IV CONTRAST: History: 72-year-old male with history of lung cancer on chemotherapy. Comparison: 09-28-17 FINDINGS: Post op midline sternotomy and coronary artery bypass changes. There is stable cardiomegaly. Previous ly noted medial right apical lung mass involving the superior right sided mediastinum now measures 2. 4 x 2.8 cm where it previously measured 5.7 x 5.9 cm. The previously noted extensive subcarinal and a zygoesophageal adenopathy now measures 2.3 x 3.9 cm where it previously measured 5.8 x 7.6 cm. The in dividual mediastinal and right perihilar and right hilar lymph nodes have all decreased in size as we ll. Right sided subaural node now measures 0.6 x 1.5 cm where it previously measured 2.3 x 3.1 cm. Th ere are several masses in the right lobe of the liver. These have decreased in size with one mass now measuring 1.8 cm where it previously measured 2.0 cm and a slightly more caudal mass in the right lo be now measures 1.8 cm where it previously measured 3.0 cm. The adenopathy adjacent to the uncinate p rocess of the pancreas now measures 1.7 cm where it previously measured 4.1 cm. There is note of a sm all intraluminal thrombus filling defect measuring 0.5 cm in the superior mesenteric vein, at the vivien e of the prior study this measures 1.5 cm in size showing a considerable decrease in size. No evidenc e for venous obstruction. Again noted is a right 6th rib lesion/abnormality with what appears to be a n associated fracture. This could represent a metastatic lesion and pathologic fracture or may repres ent some very heterogeneous callus in association with a fracture. There is also a healed nondisplace d right fourth rib fracture. Minimal stable pleural based parenchymal changes in the right lower lobe . IMPRESSION: Primary right apical lung mass and extensive metaphysis as above all showing considerable improvement when compared to 09-28-17 study. Little change in the right 6th rib abnormality. 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 POS: [facility]
[2017-11-27] MEDS ORDERED: Iopamidol 370 76% 100 ML VIAL ONE (14:11)
== END 2017-11-27 07:38 | disposition home or self-care (01) ==
LOC: CT 07:37
PROVIDERS: ATTEND Internal Medicine Medical Oncology
DX: C34.90 Malignant neoplasm of unspecified part of unspecified bronchus or lung (principal); R91.8 Other nonspecific abnormal finding of lung field; I81 Portal vein thrombosis
CPT/HCPCS: 71260; 74160

== ENCOUNTER 2018-01-28 08:55 | Outpatient (CLI) | payer MEDICARE ==
--- NOTE | 2018-01-28 11:15 | CT ---
CT OF CHEST AND ABDOMEN: Date: 01-28-18 Comparison: 11-27-17 History: Lung cancer, hepatic metastatic disease. Technique: Serial axial CT imaging obtained at 5 mm intervals from thoracic inlet through sacral prom [place]. Coronal reformatted imaging obtained. FINDINGS: No axillary lymphadenopathy is noted. Midline sternotomy wires and mediastinal clips are present. There is extensive coronary arterial calc ification present. There is atherosclerotic calcification of the aortic arch. The prior examination demonstrated a 3.9 x 2.3 cm franca mass in the subcarinal region. Abnormal soft tissue density in this region has improved since the prior examination, now measuring in the 1.5 x 3. 2 cm range. A low density soft tissue mass was seen on the prior examination abutting the posterior a spect of the superior vena cava, previously measuring 2.7 x 2.4 cm, now may be completely resolved, c urrently measuring in the 8 x 5 mm range. There is no left hilar adenopathy. No new adenopathy is see n in the chest. There are subpleural cystic changes noted within inferior posterior right lower lobe and throughout t he right upper lobe/right apex, stable. No pleural, paracardial, or mediastinal fluid is seen. There is focal density involving the inferior posterior aspect of the right lower lobe in a subpleura l location on image 38 measuring 2.8 cm in transverse dimension by 7 mm in AP dimension, of uncertain significance and unchanged. Review of the osseous structures of the chest demonstrates an areas of sclerosis within the left gustavo oid, which may signify a treated metastatic focus. There is sclerosis involving the posterolateral as pect of the right fourth rib, which may be on the basis of metastatic disease. There is a permeative lesion within the posterolateral aspect of the right 6th rib as well. Abnormality in the 4th rib is s table. Abnormal in 6th rib is improved. No new osseous lesions are identified associated with the ri ght ribs. There is a fracture of the T1 vertebral body, likely pathologic fracture on the basis of a metastatic lesion within the T1 vertebral body, similar when compared to prior imaging. There is a sclerotic fo cus within the central aspect of the T4 vertebral body, more conspicuous than on the prior examinatio n, presumably on the basis of treated metastatic disease. Sclerotic lesion also noted at T3 vertebral body left of midline. At T6 there is a vertebral body lesion right of midline extending into the rig ht pedicle. There is a left lateral T9 vertebral body lesion, not discretely seen on prior imaging. T 10 vertebral body lesion is similar when compared to prior imaging. Sclerotic lesion seen involving superior endplate of T12, suggesting treated metastatic disease. The pelvis is not imaged on this exam. There are hypodense lesions within the right lobe of the liver, which have decreased in conspicuity/s ize when compared to 09-28-17 exam. When compared to the most recent prior study performed on 04-19, t hese liver lesions have decreased in size. This includes a lesion on Image 47 which measures 1 cm, pr eviously measuring 1.8 cm; a lateral lesion on Image 52 measuring 9-10 mm, previously measuring 1.8 cm; and a tiny hypodense lesion measuring 5 mm on Image 64, previously measuring 9 mm. No new hepatic lesions are noted. Spleen, and adrenal glands are stable. The pancreas demonstrates no obvious lesio n. On the prior examination there was a hypodense region with in the region of the uncinate process o f the pancreas, which is no longer discretely visualized. On 09-28-17 exam, a lesion in this region m easured up to 4.1 cm. There was also a lesion within the distal pancreatic body on the 09-28-17 exam, which is also no longer discretely visualized. Nonspecific bilateral adrenal nodularity noted, which may signify stable metastatic disease or benign adrenal nodularity. Imaged retroperitoneal structures demonstrate multifocal atherosclerotic calcification of the abdomin al aorta and its branches. Prior imaging demonstrated superior mesenteric vein clot. This clot is not definitely visualized on t his examination. There are numerous sclerotic lesions within the imaged sacrum and bilateral iliac bones, suggesting t reated metastatic disease. There is multilevel degenerative change noted within the lumbar spine. Scl erotic foci noted in L5, L4, and L3 as well, also suggesting treated metastatic disease. The kidneys demonstrate no acute findings. Partially imaged bowel demonstrates no evidence for obstru ction. IMPRESSION: Interval improvement in diffuse metastatic disease. This includes interval sclerosis of multiple osse ous lesions suggesting treated metastatic lesions. Subcarinal franca mass has decreased in size, right upper lobe mass has decreased in size and hepatic metastatic lesions have decreased in size. Many of the malignant findings seen on the prior examination within the abdomen have resolved, including bernstein creatic/peripancreatic lesions. Continued follow up advised. No new disease seen. POS: [facility]
[2018-01-28] MEDS ORDERED: Iopamidol 370 76% 100 ML VIAL ONE (13:00)
== END 2018-01-28 08:56 | disposition home or self-care (01) ==
LOC: CT 08:55
PROVIDERS: ATTEND Internal Medicine Medical Oncology
DX: C34.11 Malignant neoplasm of upper lobe, right bronchus or lung (principal); C79.51 Secondary malignant neoplasm of bone; C78.7 Secondary malignant neoplasm of liver and intrahepatic bile duct
CPT/HCPCS: 71260; 74160

== ENCOUNTER 2018-04-07 07:22 | Outpatient (CLI) | payer MEDICARE ==
[2018-04-07 08:11] LABS: Estimated GFR-MDRD - POC Greater than 90
--- NOTE | 2018-04-07 10:27 | CT ---
CT CHEST AND ABDOMEN PERFORMED WITH INTRAVENOUS CONTRAST ENHANCEMENT: HISTORY: Small cell carcinoma lung with liver metastases. The patient last received chemotherapy one month ag o. COMPARISON: 01/28/2018 FINDINGS: CHEST: The lungs show some chronic appearing change with some subpleural cysts seen in the right roya g. On axial image 16, there is a 1.4 cm soft tissue mass directly posterior to the superior vena cava, a lthough this measurement is slightly larger than what was obtained on the previous examination. I ac tually do not think there is a significant change when comparing the coronal imaging, where it appear s fairly similar in size. It just appears larger on the axial image, but I think this is slice posit ioning. A soft tissue mass in the subcarinal and azygoesophageal recess region, noted on the prior e xamination, does appear increased in size. It now bulges much more prominently into the azygoesophag eal recess, measuring 3 x 4.2 cm, as compared to 1.5 x 3.2 cm on the previous study. There is also a right hilar lymph node (axial image 29), which is increased in size. It is a 1.4 cm, as compared to 7 to 8 mm on the prior examination. The pleural-based soft tissue changes seen within the right lower lobe (axial image 43) are stable in size, measuring approximately 8 x 31 mm on today's study, as compared to 7 x 28 mm on the prior exam . There are no new lesions identified. ABDOMEN: The liver lesions are stable in size, as compared to the prior examination. Examples inclu de a lesion involving the dome of the liver (axial image 43), measuring 10 mm on today's study (same measurement obtained on the prior study). An area within the lateral aspect of the right lobe (axial image 50) is also stable at 1 cm. A tiny focus (axial image 66) at the inferior aspect of the right lobe is also stable at 4 to 5 mm. The spleen and pancreas regions appear unremarkable. The gallbla dder shows a somewhat nodular soft tissue focus of the fundus region of the gallbladder. This is sta ble as compared to the previous 01/28/2018 and 11/27/2017 studies. Right and left adrenal glands and right and left kidneys are normal in size. No significant periaort ic or mesenteric adenopathy. OSSEOUS STRUCTURES: Changes of the right posterolateral 4th and 6th ribs are stable. The compressio n changes and sclerosis of T1 are also unchanged. The other thoracic spine mixed sclerotic lesions a ll appear stable. IMPRESSION: Evidence of some progression of disease. There has been a definite increase in the size of the subca rinal adenopathy, extending into the azygoesophageal recess. There are also right hilar lymph nodes, which are new or have increased in size, as compared to the prior examination. The remainder of the lesions, including the liver lesions and the bone lesions, appear stable. POS: [facility]
[2018-04-07] MEDS ORDERED: Iopamidol 370 76% 100 ML VIAL ONE (12:54)
== END 2018-04-07 07:23 | disposition home or self-care (01) ==
LOC: CT 07:22
PROVIDERS: ATTEND Internal Medicine Medical Oncology
DX: C78.7 Secondary malignant neoplasm of liver and intrahepatic bile duct (principal); C34.90 Malignant neoplasm of unspecified part of unspecified bronchus or lung; M89.9 Disorder of bone, unspecified; R59.0 Localized enlarged lymph nodes; Z92.21 Personal history of antineoplastic chemotherapy
CPT/HCPCS: 71260; 74160; 82565

== ENCOUNTER 2018-05-28 14:42 | Day surgery (SDC) | payer MEDICARE ==
[2018-05-28] MEDS ORDERED: diphenhydrAMINE 25 MG CAP PO SCH (16:45)
[2018-05-28] MEDS ORDERED: Acetaminophen 500 MG TAB PO SCH (16:45)
[2018-05-28 18:35] LABS: Troponin I 0.038 ng/mL (< 0.028)
[2018-05-28 20:22] LABS: Anisocytosis SLIGHT = 6-15 cells (100X) (0-5/hpf); Band 7 % (5-11); Eosinophils 4 % (0-10); Hemoglobin 8.9 g/dL (14.0-18.0); Lymphocytes 38 % (21-51); MDiff Complete? YES; Mean Corpuscular HGB CONC 34.6 g/dL (32.0-36.0); Mean Corpuscular Hemoglobin 32.6 pg (27.0-31.0); Mean Corpuscular Volume 94.2 fL (78.0-98.0); Mean Platelet Volume 7.3 fL (7.4-10.4); Monocytes 10 % (0-10); Neutrophil 34 % (42-75); Nucleated RBC 1 % (0); Ovalocytes SLIGHT = 2-5 cells (100X) (0-1/hpf); PLT Morphology Comment Appears Adequate; Platelet Count 198 thou/uL (130-400); Polychromasia MODERATE = 3-4 cells (100X) (0-2/hpf); RBC Distribution Width 14.6 % (11.5-14.5); Reactive Lymphocytes 6 % (0-10); Red Blood Cell (RBC) Count 2.74 mill/uL (4.70-6.10); Reflex for Review?? YES; Schistocytes SLIGHT = 2-5 cells (100X) (0-1/hpf); White Blood Cell (WBC) Count 1.9 thou/uL (4.8-10.8)
[2018-05-29 00:38] VITALS: BP 150/77; TEMP 97.7
--- NOTE | 2018-05-31 13:32 | EKG ---
Test Reason : Blood Pressure : / mmHG Vent. Rate : 093 BPM Atrial Rate : 093 BPM P-R Int : 158 ms QRS Dur : 100 ms QT Int : 366 ms P-R-T Axes : 061 009 -44 degrees QTc Int : 455 ms Sinus rhythm with frequent Premature ventricular complexes in a pattern of bigeminy Possible Inferior infarct , age undetermined Abnormal ECG No previous ECGs available Confirmed by JEN FELIZ, DR. Ford ([id number]) on 05/31/2018 1:31:48 PM Referred By: STARLA Confirmed By:DR. Liliana LI MD
== END 2018-05-29 02:05 | disposition home or self-care (01) ==
LOC: ONC/OP 14:42
PROVIDERS: ATTEND Internal Medicine Medical Oncology
DX: D64.9 Anemia, unspecified (principal); D69.6 Thrombocytopenia, unspecified; C34.11 Malignant neoplasm of upper lobe, right bronchus or lung
CPT/HCPCS: 36415; 36430; 80053; 82248; 83615; 84100; 84484; 84550; 85025; 85060; 86850; 86900; 86901; 93005; 93010; P9016

== ENCOUNTER 2018-06-14 10:09 | Outpatient (CLI) | payer MEDICARE ==
[2018-06-14] MEDS ORDERED: Iopamidol 370 76% 100 ML VIAL ONE (10:46)
--- NOTE | 2018-06-14 13:28 | CT ---
CT THORAX WITH CONTRAST: CT ABDOMEN WITH CONTRAST: 06/14/2018 HISTORY: A 72-year-old male with C34.1, small cell carcinoma of lung with liver metastasis (C22.9). COMPARISON: 04/07/2018 TECHNIQUE: IV contrast injected. No oral contrast. Single phase scan from the thoracic inlet to slightly superior to the bilateral iliac crests. FINDINGS: At the medial aspect of the right upper lobe, the pulmonary mass abutting the right mediastinal borde r previously measured approximately 1.4 x 1.4 x 1.6 cm. It has now grown to approximately 3.5 x 2.5 x 3.5 cm, and it indents the right posterior aspect of the superior vena cava more than before, causi ng mild to moderate narrowing of its lumen. The previously described soft tissue mass in the subcarinal and azygoesophageal recess region was pre viously approximately 3 x 4.2 x 4.9 cm. This has grown to current measurements of approximately 3.5 x 6 x 7.5 cm. It is now confluent with and inseparable from the right hilar mass, which was previous ly approximately 1.5 x 1.5 x 2 cm, and now measures approximately 3 x 2 x 2 cm. This is all confluen t with a subcarinal component of tumor mass that slightly crosses the midline to the left, by a few c entimeters. More superiorly, precarinal mediastinal lymph nodes have also grown, currently. The largest precarin al lymph node is currently approximately 2.7 x 1.8 x 1.4 cm. Previously there was an approximately 3 .1 x 7.7 cm lesion abutting the posterior basilar pleural surface, in the right lower lobe. That ple ural based pulmonary density probably has not increased in size, but there is a new small right pleur al effusion. There are at least two new patchy alveolar infiltrates. One is a small infiltrate, in the right uppe r lobe, located anterior and slightly superior to the right hilum. The other is more broad-based, in the posterior segment of the right upper lobe. The left lung is clear. No left-sided pleural effusion. The trachea and major bronchi are patent an d clear. No thoracic aortic aneurysm. Multiple osteoblastic skeletal metastatic lesions, including bilateral ribs, thoracic spine at multip le levels, right scapula, and lumbar spine. The pancreas appears normal. There is a developing small 1 x 0.9 x 1.5 cm left adrenal metastatic no dule. Normal pancreas, liver, spleen, and bilateral kidneys. The right adrenal gland is slightly th ickened, suspicious for developing adrenal metastasis. No significantly enlarged lymph nodes in the bob hepatis, periaortic retroperitoneum, or mesentery. Visualized portions of small intestine and colon demonstrate no gross abnormality. IMPRESSION: 1. Significant interval worsening of confluent malignant right inferior mediastinal and right hilar lymphadenopathy. 2. Interval worsening of right upper lateral mediastinal malignant lymphadenopathy. 3. 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 4. 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 5. New right upper lobe and right lower lobe infiltrates, suggestive of pneumonia. POS: [facility]
== END 2018-06-14 10:10 | disposition home or self-care (01) ==
LOC: CT 10:09
PROVIDERS: ATTEND Internal Medicine Medical Oncology
DX: C78.7 Secondary malignant neoplasm of liver and intrahepatic bile duct (principal); C34.90 Malignant neoplasm of unspecified part of unspecified bronchus or lung; C79.51 Secondary malignant neoplasm of bone; R59.0 Localized enlarged lymph nodes; R91.8 Other nonspecific abnormal finding of lung field
CPT/HCPCS: 71260; 74160

== ENCOUNTER 2018-06-25 11:42 | Inpatient (IN) | payer MEDICARE ==
[2018-06-25] MEDS ORDERED: methylPREDNISolone Sod Succ/PF 125 MG/2 ML VIAL ONE (12:11)
[2018-06-25 12:18] LABS: #Eosinphils 0.2 thou/uL (0.0-0.7); #Lymphocytes 0.9 thou/uL (1.20-3.40); #Monocytes 0.8 thou/uL (0.11-0.59); #Neutrophils 5.3 thou/uL (1.40-6.50); %Basophils 0.4 % (0.0-1.0); %Eosinophils 2.8 % (0.0-10.0); %Lymphocytes 12.4 % (21.0-51.0); %Monocytes 11.2 % (0.0-10.0); %Neutrophils 73.2 % (42.0-75.0); Hemoglobin 10.5 g/dL (14.0-18.0); Mean Corpuscular HGB CONC 34.4 g/dL (32.0-36.0); Mean Corpuscular Hemoglobin 31.6 pg (27.0-31.0); Mean Corpuscular Volume 91.9 fL (78.0-98.0); Mean Platelet Volume 6.2 fL (7.4-10.4); Platelet Count 801 thou/uL (130-400); RBC Distribution Width 15.4 % (11.5-14.5); Red Blood Cell (RBC) Count 3.33 mill/uL (4.70-6.10); White Blood Cell (WBC) Count 7.3 thou/uL (4.8-10.8)
[2018-06-25 12:41] LABS: ALT (SGPT) 10 U/L (8-55); AST (SGOT) 26 U/L (5-34); Albumin 3.9 g/dL (3.4-4.8); Alkaline Phosphatase 64 U/L (40-150); Anion Gap 13 mmol/L (10-20); BUN (Urea Nitrogen) 14 mg/dL (8.4-25.7); Bilirubin, Total 0.5 mg/dL (0.2-1.2); CK (CPK) 99 U/L (30-200); Calc. Creatinine Clearance 0 mL/min (70-130); Calcium 9.7 mg/dL (7.8-10.44); Carbon Dioxide 25 mmol/L (23-31); Chloride 96 mmol/L (98-107); Estimated GFR-MDRD 77; Globulin 3.9 g/dL (2.4-3.5); Glucose 198 mg/dL (80-115); Protein, Total 7.8 g/dL (5.8-8.1); Sodium 129 mmol/L (136-145)
[2018-06-25 12:46] LABS: CKMB 2.2 ng/mL (0-6.6); Troponin I 0.039 ng/mL (< 0.028)
[2018-06-25] MEDS ORDERED: cefTRIAXone\\ROCEPHIN 2 GM VIAL ONE (13:01)
[2018-06-25] MEDS ORDERED: Azithromycin 500 MG VIAL ONE (13:01)
--- NOTE | 2018-06-25 13:24 | RAD ---
CHEST 1 VIEW: Date: 06/25/18 HISTORY: Shortness of breath. COMPARISON: CT angiogram chest same date. FINDINGS: Large right effusion. Extensive right hilar tumor disease with visceral and parietal pleural extensio n. Left lung relatively clear. IMPRESSION: Progressive size increase of right lung mass, as well as pleural disease. POS: [facility]
--- NOTE | 2018-06-25 13:31 | CT ---
CT ANGIOGRAM CHEST WITH CONTRAST: Date: 06/25/18 HISTORY: Shortness of breath. Lung cancer. Chemotherapy. COMPARISON: CT chest dated 06/14/18. FINDINGS: CT angiogram chest performed after the intravenous administration of contrast. 3D rendering provided. There is attenuation of the right upper lobe pulmonary arteries due to mass effect of the large mass with mediastinal pleural disease. No proximal segmental pulmonary arterial filling defect. There is a ttenuation of the right upper lobe bronchi and right lower lobe bronchi, as well as the right middle lobe bronchi. The right upper lobe mediastinal component of the mass measures up to 2.8 cm in transve rse dimension, previously 2.1 cm. This is concerning for aggressive growth. New large right pleural e ffusion. Multiple air space opacities right middle lobe and right lower lobe, as well as left upper lobe. Uppe r abdomen relatively unremarkable. IMPRESSION: 1. Increased thickness of the right hilar mass with pleural disease measuring up to 2.[address] dimension, previously 2.1 cm. 2. Increased attenuation of the right lower, right lower, right middle, and right upper lobe bronchi and pulmonary arteries with postobstructive pneumonitis. 3. New ground glass opacities left upper lobe may reflect infection or aspiration. 4. Worsening endobronchial disease of the right bronchus intermedius, series 2, image 56, suggesting aggressive growth. 5. No proximal or segmental pulmonary arterial filling defect, although there is extensive attenuati on of the right upper lobe pulmonary arteries and right lower lobe pulmonary arteries. 6. Similar appearance of osteoblastic metastasis. 7. Similar appearance of the adrenal glands. POS: [facility]
[2018-06-25] MEDS ORDERED: ISOVUE-370 76%-LOCM 1 ML ONE (13:32)
--- NOTE | 2018-06-25 15:12 | HP ---
PRIMARY CARE PHYSICIAN: The patient does not have a primary care physician. CHIEF COMPLAINT: Shortness of breath. HISTORY OF PRESENT ILLNESS: Mr. Velazquez is a pleasant 72-year-old gentleman that has a history of advanced small cell lung cancer. He is treated by Dr. Kelly. He was in his usual state of health until approximately 2 days ago when he began complaining of shortness of breath primarily on exertion even with minimal exertion such as getting up and just to stand up. He has also been having a cough, which has been positive for light-colored sputum, occasionally with some blood streaks. He denies having any chest pain, no fevers, no chills. His appetite has been marginal. He denies any PND or orthopnea. He came to the emergency room for evaluation, and in the ER, he was found to be hypoxic on room air and had a chest x-ray demonstrating the large right hilar mass as well as a large right pleural effusion. CT scan of the chest was negative for PE; however, again the right hilar mass was noted and to be increased in size with some new ground-glass opacities in the left lung and possible endobronchial disease as well. For this reason, he is being admitted for further evaluation and treatment. REVIEW OF SYSTEMS: All systems were reviewed and negative except for that mentioned in the history of present illness. PAST MEDICAL HISTORY: Significant for small cell lung cancer as well as coronary artery disease. PAST SURGICAL HISTORY: He has had a bypass surgery. ALLERGIES: No known drug allergies. SOCIAL HISTORY: He is a former smoker; he quit a year ago. He is . Denies any alcohol use. He has 3 children. His code status is DO NOT RESUSCITATE, and this is per the patient and the patient's at the bedside. FAMILY HISTORY: No history of any inheritable diseases. CURRENT MEDICATIONS: Include tramadol as well as medication for cough. PHYSICAL EXAMINATION: GENERAL: He is alert and oriented. He appears to be in no acute distress other than some dyspnea. O2 sats are in the 80s on 2 liters, blood pressure was 138/62, heart rate 53, respiratory rate of 18, temperature is 98.3. HEENT: Pupils are equal, round, and reactive. Extraocular muscles are intact. Sclerae are anicteric. Throat, no erythema and no exudates. NECK: No adenopathy, no bruits. LUNGS: He has got decreased breath sounds bilaterally, primarily on the right base, some mild expiratory wheezing and rhonchi, but no appreciable rales. CARDIOVASCULAR: He has a normal S1 and S2. There is no S3 or S4. No murmurs, clicks or rubs. ABDOMEN: Soft, it is nontender, nondistended. Positive for bowel sounds. No rebound or guarding. EXTREMITIES: There is no edema. NEUROLOGIC: The exam is nonfocal. LABORATORY RESULTS: Chest x-ray, again a large right hilar mass as well as a right pleural effusion. CT scan demonstrating essentially the same as well as some patchy parenchymal changes on the left. White blood cell count was 7.3, hemoglobin 10.5, hematocrit is 30.6, platelet count is 801. Sodium 129, potassium 5.0, chloride is 96, CO2 is 25, BUN of 14, creatinine 0.97, glucose is 198, troponin is 0.039. ASSESSMENT AND PLAN: This is a pleasant 72-year-old gentleman, who presents to the emergency room with complaints of shortness of breath. He likely has pneumonia in addition to the extensive lung cancer, possibly even opposed to obstructive pneumonia as well as a pleural effusion, which may be affecting his symptoms as well. He will be admitted to the Medical/Oncology service, started on broad-spectrum IV antibiotics. We will have anaerobic coverage given the possibility of a postobstructive pneumonia. Place him on DuoNeb and consider steroids as well. We will also consult Pulmonology given the complex nature of his lung disease. He will also be placed on deep venous thrombosis and gastrointestinal prophylaxis. Further recommendations to follow. KIMD
[2018-06-25] MEDS ORDERED: Chloraseptic Spray 180 ml Bottle PO PRN (20:30)
[2018-06-25] MEDS ORDERED: Milk Of Magnesia 30 ML UDCUP PO PRN (20:30)
[2018-06-25] MEDS ORDERED: HYDROcodone/Acetaminophen 5/325 mg Tablet PO PRN (20:30)
[2018-06-25] MEDS ORDERED: Mag-Al 1200 mg/1200 mg/30 ML UDCUP PO PRN (20:30)
[2018-06-25] MEDS ORDERED: Acetaminophen 325 MG TAB PO PRN (20:30)
[2018-06-25] MEDS ORDERED: Sodium Chloride 0.9% 1,000 ML IV SCH (20:30)
[2018-06-25] MEDS ORDERED: Ondansetron ODT 4 MG TAB PO PRN (20:30)
[2018-06-25] MEDS ORDERED: traMADol HCl 50 MG TAB PO PRN (20:30)
[2018-06-25 21:28] VITALS: BMI 26.7
[2018-06-25] MEDS: metroNIDAZOLE 500 MG in Premix Bag 1 BAG IVPB SCH (21:45)
[2018-06-25] MEDS ORDERED: Silodosin 8 MG CAP PO SCH (22:00)
[2018-06-25] MEDS: Famotidine 20 MG TAB PO SCH (22:10)
[2018-06-25] MEDS: Docusate 100 MG CAP PO SCH (22:25)
[2018-06-26] MEDS ORDERED: Benzonatate 100 MG CAP PO PRN (00:25)
[2018-06-26] MEDS: Diabetic Tussin 200 MG/10 ML UDCUP PO PRN ×2 (00:55→05:55)
[2018-06-26 04:19] LABS: #Lymphocytes 0.5 thou/uL (1.20-3.40); #Monocytes 0.5 thou/uL (0.11-0.59); #Neutrophils 6.6 thou/uL (1.40-6.50); %Basophils 0.6 % (0.0-1.0); %Eosinophils 0.3 % (0.0-10.0); %Lymphocytes 6.9 % (21.0-51.0); %Monocytes 5.8 % (0.0-10.0); %Neutrophils 86.4 % (42.0-75.0); Hemoglobin 9.6 g/dL (14.0-18.0); Mean Corpuscular HGB CONC 34.7 g/dL (32.0-36.0); Mean Corpuscular Hemoglobin 31.7 pg (27.0-31.0); Mean Corpuscular Volume 91.4 fL (78.0-98.0); Platelet Count 654 thou/uL (130-400); RBC Distribution Width 15.1 % (11.5-14.5); Red Blood Cell (RBC) Count 3.01 mill/uL (4.70-6.10); White Blood Cell (WBC) Count 7.7 thou/uL (4.8-10.8)
[2018-06-26 04:28] LABS: Anion Gap 15 mmol/L (10-20); BUN (Urea Nitrogen) 14 mg/dL (8.4-25.7); Calc. Creatinine Clearance 85 mL/min (70-130); Calcium 9.3 mg/dL (7.8-10.44); Carbon Dioxide 23 mmol/L (23-31); Chloride 96 mmol/L (98-107); Estimated GFR-MDRD Greater than 90; Glucose 212 mg/dL (80-115); Potassium 5.3 mmol/L (3.5-5.1); Sodium 129 mmol/L (136-145)
[2018-06-26] MEDS: metroNIDAZOLE 500 MG in Premix Bag 1 BAG IVPB SCH ×2 (05:54→12:26)
[2018-06-26 08:55] VITALS: BP 130/60; TEMP 98.2
[2018-06-26] MEDS ORDERED: Enoxaparin Sodium 40 MG/0.4 ML SYRINGE SC SCH (09:00)
[2018-06-26] MEDS: Famotidine 20 MG TAB PO SCH (09:11)
[2018-06-26] MEDS: Docusate 100 MG CAP PO SCH (09:12)
[2018-06-26] MEDS ORDERED: Azithromycin 500 MG in Sodium Chloride 0.9% 250 ML 250 ML IVPB SCH ×2 (13:00→14:00)
[2018-06-26] MEDS ORDERED: cefTRIAXone\\ROCEPHIN 1 GM in Sodium Chloride 0.9% 100 ML IVPB SCH (13:00)
--- NOTE | 2018-06-26 13:52 | PDOC.PN ---
- Subjective Encounter Start Date: 06/26/18 Encounter Start Time: 13:51 Mr. Velazquez was seen in follow-up of Lung cancer and pneumonia. He says he feels a little better today than yesterday. His cough has improved some. - Objective Resuscitation Status: Resuscitation Status DNR:Do Not Resuscitate MAR Reviewed: Yes Vital Signs & Weight: Vital Signs (12 hours) Temp Pulse Resp BP Pulse Ox 06/26/18 08:53 98.2 F 104 H 22 H 130/60 98 06/26/18 08:30 98.2 F 104 H 22 H 98 06/26/18 06:20 60 12 Weight Weight 155 lb 12.105 oz I&O: 06/25/18 06/26/18 06/27/18 06:59 06:59 06:59 Intake Total 120 Balance 120 Result Diagrams: 06/26/18 03:53 06/26/18 03:53 Phys Exam - Physical Examination HEENT: PERRLA Respiratory: no rales + scattered wheeze, decreased air movement and breath sounds at the bases Cardiovascular: RRR, no significant murmur, no rub Gastrointestinal: soft, non-tender, positive bowel sounds Musculoskeletal: no edema Dx/Plan (1) Pneumonia Code(s): J18.9 - PNEUMONIA, UNSPECIFIED ORGANISM Status: Acute (2) Acute and chronic respiratory failure with hypoxia Code(s): J96.21 - ACUTE AND CHRONIC RESPIRATORY FAILURE WITH HYPOXIA Status: Acute (3) Small cell lung cancer Code(s): C34.90 - MALIGNANT NEOPLASM OF UNSP PART OF UNSP BRONCHUS OR LUNG Status: Chronic - Plan * Pneumonia- continue the current antibiotics * Advanced Small cell Lung cancer- patient is leaning towards pursuing non- aggressive care and Hospice. This consult has been placed * Possible home tomorrow
--- NOTE | 2018-06-26 20:43 | CON ---
DATE OF CONSULTATION: 06/26/2018 HISTORY: A 72-year-old gentleman from [place] who has known history of metastatic small cell cancer be ing followed by Dr. Kelly who presents here with several-day history of shortness of breath, witho ut any associated fever or chills. He has longstanding history of tobacco abuse, apparently, he is still smoking from time to time. He has lost considerable weight. PAST MEDICAL HISTORY: Pertinent for previous CVA, previous coronary artery disease. PAST SURGICAL HISTORY: Bypass. SOCIAL HISTORY: Alcohol none. Tobacco is noted. MEDICATIONS: From home includes tramadol, Rapaflo 8 mg a day, aspirin. ALLERGIES: None. SOCIAL HISTORY: He owns a motel. REVIEW OF SYSTEMS: Otherwise, 10-point negative. PHYSICAL EXAMINATION: GENERAL: He is in no acute distress. VITAL SIGNS: Sats are 94, pulse 80, blood pressure . CHEST: Decreased breath sounds in right lung. Left lung unremarkable. CARDIAC: Sinus . ABDOMEN: Soft. No masses. IMAGING: CAT scan of his chest shows extensive right hilar mass, extensive pleural thickening, worse nicho endobronchial disease, right bronchus intermedius pleural effusion, loculated, extensive osteobl astic metastasis, adrenal mets. LABORATORY DATA: White count 7000, H&H 9 and 27, platelet count 654. His electrolytes are normal. Sodium 129. IMPRESSION: Metastatic small cell cancer, extensive with marked right lung involvement with possibly loculated pleural effusion. I discussed with the patient at length. At this stage, no need to do a thoracentesis, comfort care. I asked him to contact his primary oncologist. Consider hospice care. In the meantime, I will continue antibiotics. I doubt he has got reporting pneumonia, noticed any fe luis felipe or chills. We will follow. This is a consultation note, 70 minutes of which 50% in direct patient care.
[2018-06-26] MEDS ORDERED: Silodosin 8 MG CAP PO SCH (21:00)
--- NOTE | 2018-06-26 21:55 | CON ---
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 HISTORY OF PRESENT ILLNESS: The patient is 72-year-old male from [place] who has been on chemotherapy for small cell lung cancer. He had extensive disease. He was initially treated with carboplatin and [employer]-16. After he failed that regimen, he was treated with topotecan. After 2 cycles of topotecan, anne shepherd has progressed and currently is on symptomatic treatment. He came to the hospital with shortness o f breath. He is not having any pain. A CT scan of the chest shows further disease progression. I h ad a long conversation with the patient and his daughter. The option of additional chemotherapy with Opdivo versus palliative care under hospice was discussed with the patient. The patient wants to go home on hospice and be kept comfortable. PLAN: I discussed the case with Dr. oY. If we can arrange oxygen for him, he could possibly go home on Levaquin. If not, he should stay possibly till Thursday and go home with hospice and oxygen.
--- NOTE | 2018-06-27 01:05 | DIS ---
DATE OF ADMISSION: 06/25/2018 DATE OF DISCHARGE: 06/26/2018 DISCHARGE DISPOSITION: Home. PRIMARY DISCHARGE DIAGNOSES: 1. Acute hypoxic respiratory failure secondary to pneumonia. 2. Pneumonia. 3. Small cell lung cancer. DISCHARGE MEDICATIONS: Include Medrol Dosepak, Levaquin 500 mg daily, tramadol 50 mg q.i.d. as neede d, Rapaflo 8 mg daily, Zofran 8 mg q.8 as needed, and aspirin 81 mg daily as well as home oxygen. PROCEDURES DONE DURING ADMISSION: The patient had a CT angiogram of the chest demonstrating increase d thickness of a right hilar mass with pleural disease measuring up to 2.8 cm in the greatest dimensi on. There was increased attenuation in the right lower, right middle, right upper lobe bronchi, and pulmonary arteries with postobstructive pneumonitis and some ground glass opacities in the left upper lobe, worsening endobronchial disease, similar appearance of osteoblastic metastases. CODE STATUS: DNR. ALLERGIES: No known drug allergies. HOSPITAL COURSE: Mr. Velazquez is a pleasant 72-year-old gentleman who presented to the emergency room w ith complaints of increasing shortness of breath over the past few days. He has a known history of s mall-cell lung cancer. He was admitted and started on IV antibiotics. He was seen by both Pulmonolo gy as well as Oncology. The patient was coming to the hospital mainly to his daughter; however , his real wishes were to go home and be comfortable with family. After this discussion was made and the patient made his wishes known. He was transitioned to oral antibiotics. A hospice consult was obtained and he was able to be discharged home with home hospice and to follow up with Dr. Robin odell.
== END 2018-06-26 18:40 | disposition hospice, home (50) | DRG 193 ==
LOC: ERS 11:42 → ERHOLD 13:15 → ONC 20:29 → OBSVTOIN 20:30
PROVIDERS: ADMIT Internal Medicine; ATTEND Internal Medicine
DX: J18.9 Pneumonia, unspecified organism (principal); J96.21 Acute and chronic respiratory failure with hypoxia; C34.90 Malignant neoplasm of unspecified part of unspecified bronchus or lung; C79.70 Secondary malignant neoplasm of unspecified adrenal gland; C79.51 Secondary malignant neoplasm of bone; J91.0 Malignant pleural effusion; E87.1 Hypo-osmolality and hyponatremia; I25.10 Atherosclerotic heart disease of native coronary artery without angina pectoris; Z95.1 Presence of aortocoronary bypass graft; Z87.891 Personal history of nicotine dependence; Z66 Do not resuscitate; Z51.5 Encounter for palliative care; Z92.21 Personal history of antineoplastic chemotherapy
CPT/HCPCS: 36415; 71045; 71275; 80048; 80053; 82553; 84484; 85025; 93005; 94640; 96365; 96366; 96375; 99406; A4216; J0456; J0696; J1650; J2920; J2930; J7050; J7620